=== PATIENT | female | born 1965 | race Caucasian/White ===

== ENCOUNTER 2017-12-31 19:00 | Inpatient (IN) | payer OTHER ==
[2017-12-31] MEDS: ONDANSETRON HCL 4 MG/2 ML VIAL IVP (19:45)
[2017-12-31 19:51] LABS: AUTOMATED NEUTROPHIL # 6.9 TH/MM3 (1.8-7.7); BASOPHIL % 0.5 % (0.0-2.0); EOSINOPHIL # 0.1 TH/MM3 (0-0.4); HEMO FLAGS DIFF FINAL; HEMOGLOBIN 10.2 GM/DL (11.6-15.3); LYMPH % 17.8 % (9.0-44.0); LYMPHOCYTE # 1.8 TH/MM3 (1.0-4.8); MEAN CELL VOLUME 97.6 FL (80.0-100.0); MEAN CORPUSCULAR HEMOGLOBIN 34.4 PG (27.0-34.0); MEAN CORPUSCULAR HGB CONC 35.2 % (32.0-36.0); MONO % 12.7 % (0.0-8.0); MONOCYTE # 1.3 TH/MM3 (0-0.9); PLATELET COUNT 129 TH/MM3 (150-450); RED BLOOD COUNT 2.97 MIL/MM3 (4.00-5.30); RED CELL DISTRIBUTION WIDTH 14.3 % (11.6-17.2); WHITE BLOOD COUNT 10.1 TH/MM3 (4.0-11.0)
[2017-12-31 20:02] LABS: APTT (PATIENT) 29.4 SEC (24.3-30.1); INTERNATIONAL NORMALIZED RATIO 1.3 RATIO; PROTHROMBIN TIME - PATIENT 13.6 SEC (9.8-11.6)
[2017-12-31] MEDS: DIATRIZOATE MEGLUM/DIATRIZOATE SOD 9 ML CUP (20:15)
[2017-12-31 20:25] LABS: ALBUMIN 2.4 GM/DL (3.4-5.0); ANION GAP 12 MEQ/L (5-15); AST (GOT) 53 U/L (15-37); BICARBONATE 25.3 MEQ/L (21.0-32.0); BLOOD UREA NITROGEN 6 MG/DL (7-18); CALCIUM 8.9 MG/DL (8.5-10.1); CHLORIDE 90 MEQ/L (98-107); CREATININE 0.53 MG/DL (0.50-1.00); GLOMERULAR FILTRATION RATE 122 ML/MIN (>89); GLUCOSE,RANDOM 72 MG/DL (74-106); LIPASE 281 U/L (73-393); POTASSIUM 3.1 MEQ/L (3.5-5.1); SODIUM (NA) 127 MEQ/L (136-145)
[2017-12-31 20:26] LABS: ALT (GPT) 31 U/L (10-53)
[2017-12-31 20:28] LABS: ALKALINE PHOSPHATASE 91 U/L (45-117); TOTAL BILIRUBIN ADULT 2.3 MG/DL (0.2-1.0); TOTAL PROTEIN 9.6 GM/DL (6.4-8.2)
[2017-12-31] MEDS: SODIUM CHLOR 0.9% 1000 ML INJ 1,000 ML IV (20:53)
[2017-12-31 21:37] LABS: BACTERIA, URINE OCC /hpf; BILIRUBIN, URINE NEG (NEG); BLOOD, URINE NEG (NEG); COMMENT (UR) CULT NOT INDICATED; CULTURE IF INDICATED CULT NOT INDICATED; GLUCOSE,URINE NEG (NEG); KETONE, URINE NEG (NEG); NITRITE,URINE NEG (NEG); PH, URINE 6.5 (5.0-8.5); SQUAMOUS EPITHELIAL CELL URINE <1 /hpf (0-5); URINE COLOR LIGHT-YELLOW (YELLW/STRAW); URINE LEUKOCYTE ESTERASE NEG (NEG)
[2017-12-31] MEDS: IOHEXOL 350 MG/ML 10 ML VIAL (for RAD DIAG) IVCONTRAST (21:49)
[2017-12-31] MEDS: cefTRIAXone INJ 1,000 MG in SODIUM CHLORIDE 0.9% INJ 100 ML IV (22:42)
[2017-12-31] MEDS: LORazepam 2 MG/ML VIAL IV PUSH (22:43)
[2017-12-31] MEDS: SODIUM CHLORIDE 0.9% FLUSH 10 ML FLUSH IV FLUSH (23:03)
[2017-12-31] MEDS: POTASSIUM CHLOR 20 MEQ PREMIX 100 ML IV (23:08)
[2018-01-01] MEDS ORDERED: MAGNESIUM HYDROXIDE SUSP 30 ML CUP PO (01:15)
[2018-01-01] MEDS ORDERED: SENNOSIDES 8.6 MG TAB PO (01:15)
[2018-01-01] MEDS ORDERED: BISACODYL 10 MG SUPP RECTAL (01:15)
[2018-01-01] MEDS ORDERED: SODIUM CHLORIDE 0.9% FLUSH 10 ML FLUSH IV FLUSH (01:15)
[2018-01-01] MEDS ORDERED: LACTULOSE SYRUP 20 GM/30 ML CUP PO (01:15)
[2018-01-01] MEDS ORDERED: NALOXONE HCL 0.4 MG/ML AMP IV PUSH (01:15)
[2018-01-01] MEDS ORDERED: FLUMAZENIL 0.5 MG/5 ML VIAL IV PUSH (02:45)
[2018-01-01] MEDS ORDERED: LORazepam 2 MG/ML VIAL IV PUSH (02:45)
[2018-01-01] MEDS: LORazepam 2 MG TAB PO (03:36)
[2018-01-01] MEDS: ONDANSETRON HCL 4 MG/2 ML VIAL IVP (03:36)
[2018-01-01] MEDS: MULTIVITAMIN INJ 10 ML, FOLIC ACID INJ 1 MG in SODIUM CHLORID 0.9% 500 ML INJ 500 ML IV (04:04)
[2018-01-01] MEDS: THIAMINE INJ 100 MG in SODIUM CHLORIDE 0.9% INJ 100 ML IV (04:04)
[2018-01-01] MEDS: SODIUM CHLORIDE 0.9% FLUSH 10 ML FLUSH IV FLUSH ×2 (08:44→21:00)
[2018-01-01] MEDS: PROPRANOLOL HCL 20 MG TAB PO ×3 (08:44→22:00)
[2018-01-01] MEDS: DOCUSATE SODIUM 50 MG/SENNA 8.6 MG TAB PO ×2 (08:45→21:00)
[2018-01-01 11:48] LABS: AUTOMATED NEUTROPHIL # 3.6 TH/MM3 (1.8-7.7); BASOPHIL # 0.1 TH/MM3 (0-0.2); BASOPHIL % 1.1 % (0.0-2.0); EOSINOPHIL # 0.1 TH/MM3 (0-0.4); EOSINOPHIL % 1.5 % (0.0-4.0); HEMATOCRIT 26.8 % (35.0-46.0); HEMO FLAGS DIFF FINAL; HEMOGLOBIN 9.4 GM/DL (11.6-15.3); LYMPH % 21.2 % (9.0-44.0); LYMPHOCYTE # 1.2 TH/MM3 (1.0-4.8); MEAN CELL VOLUME 99.3 FL (80.0-100.0); MEAN CORPUSCULAR HEMOGLOBIN 34.8 PG (27.0-34.0); MEAN CORPUSCULAR HGB CONC 35.1 % (32.0-36.0); MEAN PLATELET VOLUME 6.6 FL (7.0-11.0); MONO % 14.5 % (0.0-8.0); MONOCYTE # 0.8 TH/MM3 (0-0.9); NEUT % 61.7 % (16.0-70.0); PLATELET COUNT 104 TH/MM3 (150-450); RED BLOOD COUNT 2.69 MIL/MM3 (4.00-5.30); RED CELL DISTRIBUTION WIDTH 14.5 % (11.6-17.2); WHITE BLOOD COUNT 5.8 TH/MM3 (4.0-11.0)
[2018-01-01 12:25] LABS: ANION GAP 7 MEQ/L (5-15); BICARBONATE 25.9 MEQ/L (21.0-32.0); BLOOD UREA NITROGEN 7 MG/DL (7-18); CALCIUM 7.8 MG/DL (8.5-10.1); CHLORIDE 102 MEQ/L (98-107); CREATININE 0.48 MG/DL (0.50-1.00); GLOMERULAR FILTRATION RATE 136 ML/MIN (>89); GLUCOSE,RANDOM 69 MG/DL (74-106); POTASSIUM 3.4 MEQ/L (3.5-5.1); SODIUM (NA) 135 MEQ/L (136-145)
[2018-01-01] MEDS: NS + KCL 20 MEQ INJ 1,000 ML IV ×2 (12:35→22:55)
[2018-01-01] MEDS ORDERED: CHLORHEXIDINE GLUCONATE 2 % 1 PACK (2 CLOTHS) TOPICAL (14:15)
[2018-01-01] MEDS ORDERED: SODIUM CHLORID 0.9% 500 ML IV (14:15)
[2018-01-01] MEDS ORDERED: METOPROLOL TARTRATE 25 MG TAB PO (14:15)
[2018-01-01] MEDS: cefTRIAXone INJ 1,000 MG in SODIUM CHLORIDE 0.9% INJ 100 ML IV (23:00)
[2018-01-02] MEDS: THIAMINE INJ 100 MG in SODIUM CHLORIDE 0.9% INJ 100 ML IV ×2 (04:00→04:57)
[2018-01-02] MEDS: MULTIVITAMIN INJ 10 ML, FOLIC ACID INJ 1 MG in SODIUM CHLORID 0.9% 500 ML INJ 500 ML IV (04:00)
[2018-01-02] MEDS: PROPRANOLOL HCL 20 MG TAB PO ×3 (04:58→22:22)
[2018-01-02] MEDS: LACTATED RINGER'S 1000 ML IV (06:30)
[2018-01-02] MEDS: BUPIVACAINE/EPINEPHRINE 0.5% PF 30 ML VIAL (07:52)
[2018-01-02] MEDS ORDERED: SUGAMMADEX SODIUM 200 MG/2 ML VIAL IV PUSH (08:22)
[2018-01-02] MEDS ORDERED: DO NOT ADM ANY ANTICOAGULANT DRUGS (08:56)
[2018-01-02] MEDS: DOCUSATE SODIUM 50 MG/SENNA 8.6 MG TAB PO ×2 (09:00→21:00)
[2018-01-02] MEDS: SODIUM CHLORIDE 0.9% FLUSH 10 ML FLUSH IV FLUSH ×2 (09:00→21:00)
[2018-01-02] MEDS ORDERED: MIDAZOLAM HCL 2 MG/2 ML VIAL (09:06)
[2018-01-02] MEDS: NS + KCL 20 MEQ INJ 1,000 ML IV ×2 (10:14→22:22)
[2018-01-02] MEDS: oxyCODONE/ACETAMINOPHEN 5 MG/325 MG TAB PO ×2 (10:29→20:22)
[2018-01-02] MEDS: ONDANSETRON HCL 4 MG/2 ML VIAL IVP ×2 (10:35→20:28)
[2018-01-02] MEDS: ROCURONIUM INJ 50 MG/5 ML SYRINGE IV PUSH (12:00)
[2018-01-02] MEDS: PROPOFOL 200 MG/20 ML AMP IV (12:00)
[2018-01-02] MEDS: ePHEDrine/NS 25 MG/5 ML SYRINGE IV (12:00)
[2018-01-02] MEDS: LIDOCAINE HCL 1% PF 5 ML SYRINGE OTHER (12:00)
[2018-01-02 12:52] LABS: AUTOMATED NEUTROPHIL # 3.9 TH/MM3 (1.8-7.7); BASOPHIL # 0.1 TH/MM3 (0-0.2); BASOPHIL % 1.3 % (0.0-2.0); EOSINOPHIL # 0.1 TH/MM3 (0-0.4); EOSINOPHIL % 1.5 % (0.0-4.0); HEMO FLAGS DIFF FINAL; HEMOGLOBIN 10.2 GM/DL (11.6-15.3); LYMPHOCYTE # 1.9 TH/MM3 (1.0-4.8); MEAN CELL VOLUME 101.1 FL (80.0-100.0); MEAN CORPUSCULAR HEMOGLOBIN 34.5 PG (27.0-34.0); MEAN CORPUSCULAR HGB CONC 34.2 % (32.0-36.0); MEAN PLATELET VOLUME 6.8 FL (7.0-11.0); MONOCYTE # 0.9 TH/MM3 (0-0.9); NEUT % 56.2 % (16.0-70.0); PLATELET COUNT 128 TH/MM3 (150-450); RED BLOOD COUNT 2.97 MIL/MM3 (4.00-5.30); RED CELL DISTRIBUTION WIDTH 14.6 % (11.6-17.2); WHITE BLOOD COUNT 6.9 TH/MM3 (4.0-11.0)
[2018-01-02 13:23] LABS: ALBUMIN 1.8 GM/DL (3.4-5.0); ANION GAP 8 MEQ/L (5-15); AST (GOT) 196 U/L (15-37); BICARBONATE 23.2 MEQ/L (21.0-32.0); BLOOD UREA NITROGEN 7 MG/DL (7-18); CALCIUM 7.5 MG/DL (8.5-10.1); CHLORIDE 102 MEQ/L (98-107); CREATININE 0.54 MG/DL (0.50-1.00); GLOMERULAR FILTRATION RATE 119 ML/MIN (>89); GLUCOSE,RANDOM 106 MG/DL (74-106); POTASSIUM 3.4 MEQ/L (3.5-5.1); SODIUM (NA) 133 MEQ/L (136-145)
[2018-01-02 13:27] LABS: ALKALINE PHOSPHATASE 70 U/L (45-117); ALT (GPT) 56 U/L (10-53); TOTAL BILIRUBIN ADULT 1.9 MG/DL (0.2-1.0); TOTAL PROTEIN 6.8 GM/DL (6.4-8.2)
[2018-01-02 15:35] LABS: AMMONIA 64 MCMOL/L (11-32)
[2018-01-02] MEDS: LORazepam 2 MG/ML VIAL IV PUSH (17:32)
[2018-01-02] MEDS: SPIRONOLACTONE 25 MG TAB PO (17:33)
[2018-01-02] MEDS: cefTRIAXone INJ 1,000 MG in SODIUM CHLORIDE 0.9% INJ 100 ML IV (22:22)
[2018-01-03] MEDS: MULTIVITAMIN INJ 10 ML, FOLIC ACID INJ 1 MG in SODIUM CHLORID 0.9% 500 ML INJ 500 ML IV (04:00)
[2018-01-03 04:50] LABS: AUTOMATED NEUTROPHIL # 5.7 TH/MM3 (1.8-7.7); BASOPHIL # 0.1 TH/MM3 (0-0.2); BASOPHIL % 1.2 % (0.0-2.0); EOSINOPHIL # 0.1 TH/MM3 (0-0.4); EOSINOPHIL % 1.6 % (0.0-4.0); HEMATOCRIT 30.7 % (35.0-46.0); HEMO FLAGS DIFF FINAL; HEMOGLOBIN 10.6 GM/DL (11.6-15.3); LYMPH % 24.1 % (9.0-44.0); LYMPHOCYTE # 2.2 TH/MM3 (1.0-4.8); MEAN CORPUSCULAR HEMOGLOBIN 34.4 PG (27.0-34.0); MEAN CORPUSCULAR HGB CONC 34.4 % (32.0-36.0); MEAN PLATELET VOLUME 6.6 FL (7.0-11.0); MONO % 9.6 % (0.0-8.0); MONOCYTE # 0.9 TH/MM3 (0-0.9); NEUT % 63.5 % (16.0-70.0); PLATELET COUNT 134 TH/MM3 (150-450); RED BLOOD COUNT 3.07 MIL/MM3 (4.00-5.30); RED CELL DISTRIBUTION WIDTH 14.4 % (11.6-17.2); WHITE BLOOD COUNT 8.9 TH/MM3 (4.0-11.0)
[2018-01-03] MEDS: PROPRANOLOL HCL 20 MG TAB PO ×3 (04:55→21:01)
[2018-01-03] MEDS: oxyCODONE/ACETAMINOPHEN 5 MG/325 MG TAB PO ×4 (04:55→23:36)
[2018-01-03] MEDS: THIAMINE INJ 100 MG in SODIUM CHLORIDE 0.9% INJ 100 ML IV (04:56)
[2018-01-03] MEDS: ONDANSETRON HCL 4 MG/2 ML VIAL IVP ×3 (05:04→23:40)
[2018-01-03 05:29] LABS: ALBUMIN 1.8 GM/DL (3.4-5.0); ALKALINE PHOSPHATASE 76 U/L (45-117); ALT (GPT) 60 U/L (10-53); ANION GAP 6 MEQ/L (5-15); AST (GOT) 161 U/L (15-37); BICARBONATE 23.7 MEQ/L (21.0-32.0); BLOOD UREA NITROGEN 7 MG/DL (7-18); CALCIUM 7.8 MG/DL (8.5-10.1); CHLORIDE 106 MEQ/L (98-107); CREATININE 0.55 MG/DL (0.50-1.00); GLOMERULAR FILTRATION RATE 117 ML/MIN (>89); GLUCOSE,RANDOM 81 MG/DL (74-106); POTASSIUM 4.2 MEQ/L (3.5-5.1); SODIUM (NA) 136 MEQ/L (136-145); TOTAL BILIRUBIN ADULT 1.6 MG/DL (0.2-1.0); TOTAL PROTEIN 6.9 GM/DL (6.4-8.2)
[2018-01-03] MEDS: SODIUM CHLORIDE 0.9% FLUSH 10 ML FLUSH IV FLUSH ×2 (09:00→21:00)
[2018-01-03] MEDS: DOCUSATE SODIUM 50 MG/SENNA 8.6 MG TAB PO ×2 (09:00→21:00)
[2018-01-03] MEDS: SPIRONOLACTONE 25 MG TAB PO ×2 (09:42→18:04)
[2018-01-03] MEDS: RESP: ALBUTEROL 2.5 MG/IPRATROPIUM 0.5 MG NEB (PRN) NEB (10:25)
[2018-01-03] MEDS: BUDESONIDE-FORMOTEROL 160/4.5 MCG INHALER INH ×2 (13:23→21:00)
[2018-01-03] MEDS: NS + KCL 20 MEQ INJ 1,000 ML IV ×2 (13:28→21:46)
[2018-01-03 16:22] LABS: % SATURATION IRON PROFILE 31.6 % (20-50); IRON (FE) 104 MCG/DL (50-170); TOTAL IRON BINDING CAPACITY 329 MCG/DL (250-450); TRANSFERRIN IRON PROFILE 235 MG/DL (200-360)
[2018-01-03 16:22] LABS: FERRITIN 72 NG/ML (8-252)
[2018-01-03 22:05] LABS: HEPATITIS A AB IGM NONREACTIVE (NONREACTIVE); HEPATITIS B CORE AB IGM NONREACTIVE (NONREACTIVE); HEPATITIS B SURFACE ANTIGEN NONREACTIVE (NONREACTIVE); HEPATITIS C AB IgG REACTIVE (NONREACTIVE)
[2018-01-03] MEDS: cefTRIAXone INJ 1,000 MG in SODIUM CHLORIDE 0.9% INJ 100 ML IV (23:37)
[2018-01-04] MEDS: MULTIVITAMIN INJ 10 ML, FOLIC ACID INJ 1 MG in SODIUM CHLORID 0.9% 500 ML INJ 500 ML IV (03:57)
[2018-01-04] MEDS: RESP: ALBUTEROL 2.5 MG/IPRATROPIUM 0.5 MG NEB (PRN) NEB ×2 (04:07→08:41)
[2018-01-04] MEDS: oxyCODONE/ACETAMINOPHEN 5 MG/325 MG TAB PO ×5 (04:34→23:00)
[2018-01-04] MEDS: PROPRANOLOL HCL 20 MG TAB PO ×3 (05:16→20:41)
[2018-01-04 07:41] LABS: BLOOD GAS CARBOXYHEMOGLOBIN 1.3 % (0-4); BLOOD GAS HCO3 21 mmol/L (22-26); BLOOD GAS O2 HGB SATURATION 87 % (90-100); BLOOD GAS OXYGEN CONTENT 17.3 Vol % (12.0-20.0); BLOOD GAS PCO2 38 mmHg (38-42); BLOOD GAS PO2 65 mmHg (61-120); BLOOD GAS TOTAL HGB 14.1 G/DL (12.0-16.0); TEMP CORR TO 98.6
[2018-01-04 07:45] LABS: CRITICAL VALUE YES
[2018-01-04 07:46] LABS: DRAW SITE RT RADIAL; LITER FLOW 9 L/M; NUMBER OF ARTERIAL PUNCTURES 1; OXYGEN DEVICE SIMPLE MASK; STAT YES; ULNAR PULSE PRESENT
[2018-01-04 07:56] LABS: AUTOMATED NEUTROPHIL # 11.2 TH/MM3 (1.8-7.7); BASOPHIL # 0.1 TH/MM3 (0-0.2); BASOPHIL % 0.8 % (0.0-2.0); EOSINOPHIL # 0.1 TH/MM3 (0-0.4); EOSINOPHIL % 0.5 % (0.0-4.0); HEMATOCRIT 31.3 % (35.0-46.0); HEMO FLAGS DIFF FINAL; HEMOGLOBIN 10.5 GM/DL (11.6-15.3); LYMPH % 8.9 % (9.0-44.0); LYMPHOCYTE # 1.2 TH/MM3 (1.0-4.8); MEAN CELL VOLUME 101.6 FL (80.0-100.0); MEAN CORPUSCULAR HEMOGLOBIN 33.9 PG (27.0-34.0); MEAN CORPUSCULAR HGB CONC 33.4 % (32.0-36.0); MEAN PLATELET VOLUME 6.6 FL (7.0-11.0); MONO % 7.7 % (0.0-8.0); MONOCYTE # 1.1 TH/MM3 (0-0.9); NEUT % 82.1 % (16.0-70.0); PLATELET COUNT 110 TH/MM3 (150-450); RED BLOOD COUNT 3.08 MIL/MM3 (4.00-5.30); RED CELL DISTRIBUTION WIDTH 15.1 % (11.6-17.2); WHITE BLOOD COUNT 13.7 TH/MM3 (4.0-11.0)
[2018-01-04] MEDS: BUDESONIDE-FORMOTEROL 160/4.5 MCG INHALER INH ×2 (08:00→23:57)
[2018-01-04] MEDS: THIAMINE HCL 100 MG TAB PO (08:00)
[2018-01-04] MEDS: DOCUSATE SODIUM 50 MG/SENNA 8.6 MG TAB PO ×2 (08:01→20:42)
[2018-01-04] MEDS: SPIRONOLACTONE 25 MG TAB PO ×2 (08:02→17:55)
[2018-01-04] MEDS: SODIUM CHLORIDE 0.9% FLUSH 10 ML FLUSH IV FLUSH ×2 (08:02→21:00)
[2018-01-04] MEDS: ONDANSETRON HCL 4 MG/2 ML VIAL IVP ×2 (08:15→13:52)
[2018-01-04 08:32] LABS: ALBUMIN 1.8 GM/DL (3.4-5.0); ANION GAP 10 MEQ/L (5-15); AST (GOT) 91 U/L (15-37); BICARBONATE 21.2 MEQ/L (21.0-32.0); BLOOD UREA NITROGEN 6 MG/DL (7-18); CHLORIDE 105 MEQ/L (98-107); CREATININE 0.52 MG/DL (0.50-1.00); GLOMERULAR FILTRATION RATE 124 ML/MIN (>89); GLUCOSE,RANDOM 75 MG/DL (74-106); POTASSIUM 4.4 MEQ/L (3.5-5.1); SODIUM (NA) 136 MEQ/L (136-145)
[2018-01-04 08:33] LABS: ALT (GPT) 41 U/L (10-53)
[2018-01-04 08:35] LABS: ALKALINE PHOSPHATASE 77 U/L (45-117); TOTAL BILIRUBIN ADULT 1.8 MG/DL (0.2-1.0); TOTAL PROTEIN 6.6 GM/DL (6.4-8.2)
[2018-01-04] MEDS ORDERED: Vancomycin Consult Pharmacy 1 EA OTHER (09:45)
[2018-01-04] MEDS: NS + KCL 20 MEQ INJ 1,000 ML IV ×2 (10:30→20:42)
[2018-01-04] MEDS ORDERED: LEVOFLOXACIN 750 MG PREMIX INJ 150 ML IV (11:00)
[2018-01-04] MEDS: VANCOMYCIN 1,000 MG/NS 250 ML IV ×2 (11:01→22:22)
[2018-01-04] MEDS: PIPERACIL-TAZO 4.5 GM PREMIX 100 ML IV ×3 (12:03→23:57)
[2018-01-04] MEDS: methylPREDNISolone SOD SUCC 125 MG/2 ML VIAL IV PUSH ×3 (12:04→23:10)
[2018-01-04] MEDS: LACTULOSE SYRUP 20 GM/30 ML CUP PO (13:09)
[2018-01-04] MEDS: LEVOFLOXACIN 750 MG PREMIX INJ 150 ML IV (13:38)
[2018-01-04] MEDS: RESP: ALBUTEROL 2.5 MG/IPRATROPIUM 0.5 MG NEB (SCH) NEB ×2 (15:52→21:05)
[2018-01-04 16:36] LABS: ANA SCREEN NEG (NEG)
[2018-01-05] MEDS: MULTIVITAMIN INJ 10 ML, FOLIC ACID INJ 1 MG in SODIUM CHLORID 0.9% 500 ML INJ 500 ML IV (02:08)
[2018-01-05] MEDS: oxyCODONE/ACETAMINOPHEN 5 MG/325 MG TAB PO ×3 (02:22→18:08)
[2018-01-05] MEDS: RESP: ALBUTEROL 2.5 MG/IPRATROPIUM 0.5 MG NEB (SCH) NEB ×4 (02:50→20:19)
[2018-01-05] MEDS: PIPERACIL-TAZO 4.5 GM PREMIX 100 ML IV ×4 (05:44→23:47)
[2018-01-05] MEDS: PROPRANOLOL HCL 20 MG TAB PO ×3 (05:45→21:43)
[2018-01-05] MEDS: methylPREDNISolone SOD SUCC 125 MG/2 ML VIAL IV PUSH ×4 (05:47→23:47)
[2018-01-05 07:01] LABS: AUTOMATED NEUTROPHIL # 15.5 TH/MM3 (1.8-7.7); BASOPHIL # 0.1 TH/MM3 (0-0.2); BASOPHIL % 0.4 % (0.0-2.0); EOSINOPHIL % 0.1 % (0.0-4.0); HEMATOCRIT 32.3 % (35.0-46.0); HEMO FLAGS DIFF FINAL; HEMOGLOBIN 10.9 GM/DL (11.6-15.3); LYMPH % 4.6 % (9.0-44.0); LYMPHOCYTE # 0.8 TH/MM3 (1.0-4.8); MEAN CELL VOLUME 100.5 FL (80.0-100.0); MEAN CORPUSCULAR HEMOGLOBIN 33.9 PG (27.0-34.0); MEAN CORPUSCULAR HGB CONC 33.7 % (32.0-36.0); MEAN PLATELET VOLUME 6.8 FL (7.0-11.0); MONO % 5.4 % (0.0-8.0); MONOCYTE # 0.9 TH/MM3 (0-0.9); NEUT % 89.5 % (16.0-70.0); PLATELET COUNT 133 TH/MM3 (150-450); RED BLOOD COUNT 3.21 MIL/MM3 (4.00-5.30); RED CELL DISTRIBUTION WIDTH 14.9 % (11.6-17.2); WHITE BLOOD COUNT 17.3 TH/MM3 (4.0-11.0)
[2018-01-05 07:17] LABS: AMMONIA 27 MCMOL/L (11-32)
[2018-01-05] MEDS: SODIUM CHLORIDE 0.9% FLUSH 10 ML FLUSH IV FLUSH ×2 (07:27→21:43)
[2018-01-05 07:39] LABS: ALKALINE PHOSPHATASE 74 U/L (45-117); TOTAL PROTEIN 7.6 GM/DL (6.4-8.2)
[2018-01-05 07:59] LABS: ALBUMIN 1.8 GM/DL (3.4-5.0); ANION GAP 10 MEQ/L (5-15); BICARBONATE 17.8 MEQ/L (21.0-32.0); BLOOD UREA NITROGEN 11 MG/DL (7-18); CALCIUM 8.2 MG/DL (8.5-10.1); CHLORIDE 104 MEQ/L (98-107); CREATININE 0.73 MG/DL (0.50-1.00); GLOMERULAR FILTRATION RATE 84 ML/MIN (>89); GLUCOSE,RANDOM 109 MG/DL (74-106); POTASSIUM 4.7 MEQ/L (3.5-5.1); SODIUM (NA) 132 MEQ/L (136-145)
[2018-01-05 08:00] LABS: ALT (GPT) 39 U/L (10-53); AST (GOT) 96 U/L (15-37)
[2018-01-05] MEDS: DOCUSATE SODIUM 50 MG/SENNA 8.6 MG TAB PO ×2 (08:43→21:43)
[2018-01-05] MEDS: LACTULOSE SYRUP 20 GM/30 ML CUP PO (08:43)
[2018-01-05] MEDS: NS + KCL 20 MEQ INJ 1,000 ML IV ×2 (08:43→21:44)
[2018-01-05] MEDS: THIAMINE HCL 100 MG TAB PO (08:43)
[2018-01-05] MEDS: BUDESONIDE-FORMOTEROL 160/4.5 MCG INHALER INH ×2 (08:43→21:43)
[2018-01-05] MEDS: SPIRONOLACTONE 25 MG TAB PO ×2 (08:48→17:22)
[2018-01-05] MEDS: LORazepam 1 MG TAB PO (08:49)
[2018-01-05 09:27] LABS: MRSA PCR SURVEILLANCE MRSA NOT DETECTED (NOT DETECT)
[2018-01-05 10:35] LABS: BLOOD GAS BASE EXCESS -5.7 mmol/L (-2-2); BLOOD GAS CARBOXYHEMOGLOBIN 1.3 % (0-4); BLOOD GAS HCO3 19 mmol/L (22-26); BLOOD GAS O2 HGB SATURATION 92 % (90-100); BLOOD GAS OXYGEN CONTENT 13.7 Vol % (12.0-20.0); BLOOD GAS PCO2 35 mmHg (38-42); BLOOD GAS PO2 74 mmHg (61-120); BLOOD GAS TOTAL HGB 10.6 G/DL (12.0-16.0); CRITICAL VALUE NO; OXYGEN DEVICE NASAL CANNULA; TEMP CORR TO 98.6
[2018-01-05 10:36] LABS: DRAW SITE RT RADIAL; FIO2 90 %; LITER FLOW 30 L/M; NUMBER OF ARTERIAL PUNCTURES 1; STAT NO; ULNAR PULSE PRESENT
[2018-01-05] MEDS: VANCOMYCIN 1,000 MG/NS 250 ML IV ×2 (12:16→22:40)
[2018-01-05 13:26] LABS: ALPHA-1-ANTITRYPSIN 118 mg/dL (100 - 190)
[2018-01-05] MEDS: LEVOFLOXACIN 750 MG PREMIX INJ 150 ML IV (14:00)
[2018-01-05] MEDS: PHARMACY ORDERED LAB (22:45)
[2018-01-05 22:50] LABS: VANCOMYCIN TROUGH 16.6 MCG/ML (5.0-10.0)
[2018-01-05 23:53] LABS: MITOCHONDRIAL ABS LESS THAN 20.0 U (<=20.0)
[2018-01-06] MEDS: oxyCODONE/ACETAMINOPHEN 5 MG/325 MG TAB PO (00:35)
[2018-01-06] MEDS: LORazepam 2 MG TAB PO (03:09)
[2018-01-06] MEDS: RESP: ALBUTEROL 2.5 MG/IPRATROPIUM 0.5 MG NEB (SCH) NEB ×4 (05:01→23:32)
[2018-01-06] MEDS: PIPERACIL-TAZO 4.5 GM PREMIX 100 ML IV ×3 (05:26→16:17)
[2018-01-06] MEDS: PROPRANOLOL HCL 20 MG TAB PO ×3 (05:26→21:35)
[2018-01-06] MEDS: methylPREDNISolone SOD SUCC 125 MG/2 ML VIAL IV PUSH ×3 (05:26→16:18)
[2018-01-06] MEDS: LORazepam 2 MG/ML VIAL IV PUSH ×3 (07:13→13:03)
[2018-01-06] MEDS: SPIRONOLACTONE 25 MG TAB PO ×2 (08:25→16:18)
[2018-01-06] MEDS: DOCUSATE SODIUM 50 MG/SENNA 8.6 MG TAB PO ×2 (08:26→20:21)
[2018-01-06] MEDS: LACTULOSE SYRUP 20 GM/30 ML CUP PO (08:26)
[2018-01-06] MEDS: THIAMINE HCL 100 MG TAB PO (08:26)
[2018-01-06] MEDS: SODIUM CHLORIDE 0.9% FLUSH 10 ML FLUSH IV FLUSH ×2 (08:27→20:21)
[2018-01-06] MEDS: BUDESONIDE-FORMOTEROL 160/4.5 MCG INHALER INH ×2 (08:28→21:00)
[2018-01-06] MEDS: DEXMEDETOMIDINE INJ 200 MCG in SODIUM CHLORIDE 0.9% INJ 50 ML IV (09:11)
[2018-01-06] MEDS ORDERED: ETOMIDATE 40 MG/20 ML VIAL (09:34)
[2018-01-06] MEDS ORDERED: ROCURONIUM INJ 50 MG/5 ML VIAL (09:35)
[2018-01-06] MEDS ORDERED: fentaNYL CITRATE 250 MCG/5 ML AMP IV (09:45)
[2018-01-06] MEDS ORDERED: PROPOFOL 500 MG/50 ML INJ 50 ML (09:59)
[2018-01-06] MEDS: ETOMIDATE 20 MG/10 ML VIAL IVP (11:24)
[2018-01-06] MEDS: ROCURONIUM INJ 50 MG/5 ML VIAL IV (11:25)
[2018-01-06] MEDS: VANCOMYCIN 1,000 MG/NS 250 ML IV ×2 (11:33→23:32)
[2018-01-06] MEDS: NS + KCL 20 MEQ INJ 1,000 ML IV (11:33)
[2018-01-06 11:34] LABS: BLOOD GAS BASE EXCESS -5.9 mmol/L (-2-2); BLOOD GAS CARBOXYHEMOGLOBIN 1.1 % (0-4); BLOOD GAS HCO3 20 mmol/L (22-26); BLOOD GAS METHEMOGLOBIN 0.9 % (0-2); BLOOD GAS O2 HGB SATURATION 97 % (90-100); BLOOD GAS OXYGEN CONTENT 16.7 Vol % (12.0-20.0); BLOOD GAS PCO2 49 mmHg (38-42); BLOOD GAS PO2 222 mmHg (61-120); BLOOD GAS TOTAL HGB 11.8 G/DL (12.0-16.0); TEMP CORR TO 98.6
[2018-01-06 11:35] LABS: CRITICAL VALUE YES; OXYGEN DEVICE VENTILATOR
[2018-01-06 11:36] LABS: DRAW SITE RT RADIAL; FIO2 100 %; NUMBER OF ARTERIAL PUNCTURES 1; STAT NO; ULNAR PULSE PRESENT; VENT SETTINGS PRVC/AC
[2018-01-06 11:41] LABS: AUTOMATED NEUTROPHIL # 11.6 TH/MM3 (1.8-7.7); BASOPHIL # 0.1 TH/MM3 (0-0.2); BASOPHIL % 0.5 % (0.0-2.0); HEMATOCRIT 34.9 % (35.0-46.0); HEMO FLAGS DIFF FINAL; HEMOGLOBIN 11.7 GM/DL (11.6-15.3); LYMPH % 4.6 % (9.0-44.0); LYMPHOCYTE # 0.6 TH/MM3 (1.0-4.8); MEAN CORPUSCULAR HEMOGLOBIN 33.5 PG (27.0-34.0); MEAN CORPUSCULAR HGB CONC 33.5 % (32.0-36.0); MONOCYTE # 0.8 TH/MM3 (0-0.9); NEUT % 88.9 % (16.0-70.0); PLATELET COUNT 140 TH/MM3 (150-450); RED BLOOD COUNT 3.49 MIL/MM3 (4.00-5.30); RED CELL DISTRIBUTION WIDTH 15.2 % (11.6-17.2); WHITE BLOOD COUNT 13.1 TH/MM3 (4.0-11.0)
[2018-01-06] MEDS: PROPOFOL 1000 MG/100 ML INJ 100 ML IV (11:42)
[2018-01-06 12:08] LABS: ALBUMIN 1.6 GM/DL (3.4-5.0); ANION GAP 9 MEQ/L (5-15); AST (GOT) 85 U/L (15-37); BICARBONATE 20.8 MEQ/L (21.0-32.0); BLOOD UREA NITROGEN 14 MG/DL (7-18); CHLORIDE 106 MEQ/L (98-107); CREATININE 0.58 MG/DL (0.50-1.00); GLOMERULAR FILTRATION RATE 110 ML/MIN (>89); GLUCOSE,RANDOM 99 MG/DL (74-106); POTASSIUM 4.3 MEQ/L (3.5-5.1); SODIUM (NA) 136 MEQ/L (136-145)
[2018-01-06 12:09] LABS: ALT (GPT) 34 U/L (10-53)
[2018-01-06 12:11] LABS: BILIRUBIN, URINE NEG (NEG); BLOOD, URINE NEG (NEG); GLUCOSE,URINE NEG (NEG); KETONE, URINE NEG (NEG); MUCUS URINE FEW /lpf (OCC); NITRITE,URINE NEG (NEG); PH, URINE 5.5 (5.0-8.5); SQUAMOUS EPITHELIAL CELL URINE 1 /hpf (0-5); URINE COLOR YELLOW (YELLW/STRAW); URINE LEUKOCYTE ESTERASE NEG (NEG)
[2018-01-06 12:12] LABS: ALKALINE PHOSPHATASE 62 U/L (45-117); COMMENT (UR) CATH-CULT NOT IND; CULTURE IF INDICATED CATH CULTURE NOT IND; TOTAL BILIRUBIN ADULT 1.8 MG/DL (0.2-1.0); TOTAL PROTEIN 6.9 GM/DL (6.4-8.2)
[2018-01-06] MEDS: LEVOFLOXACIN 750 MG PREMIX INJ 150 ML IV (13:02)
[2018-01-06] MEDS ORDERED: TERBUTALINE INJ 1 MG/ML AMP SQ (15:00)
[2018-01-06] MEDS: RASS Change Order XX (15:00)
[2018-01-06] MEDS: LANSOPRAZOLE SOLUTAB 30 MG TAB NG (15:11)
[2018-01-06] MEDS: fentaNYL DRIP 250 ML IV (15:12)
[2018-01-06] MEDS: NOREPINEPHRINE-DEXTROSE DRIP 250 ML IV (15:12)
[2018-01-06] MEDS: MIDAZOLAM HCL 2 MG/2 ML VIAL IV PUSH (15:12)
[2018-01-06] MEDS: MIDAZOLAM 50 MG/50 ML INJ 50 ML IV (15:13)
[2018-01-06] MEDS: CHLORHEXIDINE 0.12% (ORAL KIT) 15 ML CUP MT (20:00)
[2018-01-07] MEDS: methylPREDNISolone SOD SUCC 125 MG/2 ML VIAL IV PUSH ×4 (00:47→17:03)
[2018-01-07] MEDS: PIPERACIL-TAZO 4.5 GM PREMIX 100 ML IV ×4 (00:47→17:03)
[2018-01-07 03:50] LABS: HCV RNA PCR IU/ML 20 IU/mL (Not Detected)
[2018-01-07] MEDS: NS + KCL 20 MEQ INJ 1,000 ML IV ×3 (03:50→21:55)
[2018-01-07] MEDS: RESP: ALBUTEROL 2.5 MG/IPRATROPIUM 0.5 MG NEB (SCH) NEB ×4 (04:13→20:26)
[2018-01-07] MEDS: PROPRANOLOL HCL 20 MG TAB PO ×3 (05:14→21:26)
[2018-01-07] MEDS: NOREPINEPHRINE-DEXTROSE DRIP 250 ML IV (05:14)
[2018-01-07] MEDS: fentaNYL DRIP 250 ML IV ×2 (05:36→17:03)
[2018-01-07 06:23] LABS: AUTOMATED NEUTROPHIL # 8.8 TH/MM3 (1.8-7.7); BASOPHIL % 0.2 % (0.0-2.0); EOSINOPHIL % 0.3 % (0.0-4.0); HEMATOCRIT 30.8 % (35.0-46.0); HEMOGLOBIN 10.6 GM/DL (11.6-15.3); LYMPH % 5.5 % (9.0-44.0); LYMPHOCYTE # 0.5 TH/MM3 (1.0-4.8); MEAN CELL VOLUME 100.2 FL (80.0-100.0); MEAN CORPUSCULAR HEMOGLOBIN 34.6 PG (27.0-34.0); MEAN CORPUSCULAR HGB CONC 34.5 % (32.0-36.0); MEAN PLATELET VOLUME 7.2 FL (7.0-11.0); MONO % 4.6 % (0.0-8.0); MONOCYTE # 0.5 TH/MM3 (0-0.9); NEUT % 89.4 % (16.0-70.0); PLATELET COUNT 108 TH/MM3 (150-450); RED BLOOD COUNT 3.07 MIL/MM3 (4.00-5.30); RED CELL DISTRIBUTION WIDTH 15.3 % (11.6-17.2); WHITE BLOOD COUNT 9.9 TH/MM3 (4.0-11.0)
[2018-01-07 06:48] LABS: ALBUMIN 1.4 GM/DL (3.4-5.0); ALKALINE PHOSPHATASE 62 U/L (45-117); ALT (GPT) 28 U/L (10-53); ANION GAP 8 MEQ/L (5-15); AST (GOT) 66 U/L (15-37); BICARBONATE 21.6 MEQ/L (21.0-32.0); BLOOD UREA NITROGEN 14 MG/DL (7-18); CALCIUM 7.4 MG/DL (8.5-10.1); CALCIUM-PROTEIN CORRECTED 7.9 MG/DL (8.5-10.1); CHLORIDE 108 MEQ/L (98-107); CREATININE 0.58 MG/DL (0.50-1.00); GLOMERULAR FILTRATION RATE 110 ML/MIN (>89); GLUCOSE,RANDOM 155 MG/DL (74-106); POTASSIUM 4.4 MEQ/L (3.5-5.1); SODIUM (NA) 138 MEQ/L (136-145); TOTAL BILIRUBIN ADULT 1.3 MG/DL (0.2-1.0); TOTAL PROTEIN 6.2 GM/DL (6.4-8.2)
[2018-01-07 07:19] LABS: HEMO FLAGS AUTO DIFF
[2018-01-07 07:20] LABS: PLATELET ESTIMATE SMEAR LOW (NORMAL); PLATELET MORPHOLOGY NORMAL (NORMAL); SCAN/DIFF AUTO DIFF CONFIRMED
[2018-01-07] MEDS: LACTULOSE SYRUP 20 GM/30 ML CUP PO (07:47)
[2018-01-07] MEDS: SPIRONOLACTONE 25 MG TAB PO ×2 (07:47→17:03)
[2018-01-07] MEDS: DOCUSATE SODIUM 50 MG/SENNA 8.6 MG TAB PO ×2 (07:47→21:26)
[2018-01-07] MEDS: LANSOPRAZOLE SOLUTAB 30 MG TAB NG (07:47)
[2018-01-07] MEDS: THIAMINE HCL 100 MG TAB PO (07:47)
[2018-01-07] MEDS: SODIUM CHLORIDE 0.9% FLUSH 10 ML FLUSH IV FLUSH ×2 (07:48→19:36)
[2018-01-07] MEDS: MIDAZOLAM 50 MG/50 ML INJ 50 ML IV ×2 (07:49→19:27)
[2018-01-07] MEDS: BUDESONIDE-FORMOTEROL 160/4.5 MCG INHALER INH ×2 (07:49→19:35)
[2018-01-07] MEDS: CHLORHEXIDINE 0.12% (ORAL KIT) 15 ML CUP MT ×2 (07:49→21:26)
[2018-01-07] MEDS: PHARMACY ORDERED LAB (10:45)
[2018-01-07] MEDS: VANCOMYCIN 1,000 MG/NS 250 ML IV (10:56)
[2018-01-07 12:29] LABS: VANCOMYCIN TROUGH 15.9 MCG/ML (5.0-10.0)
[2018-01-07 13:52] LABS: HEPATITIS C RNA GENOTYPE NOT DETECTED (NOT DETECTD)
[2018-01-07] MEDS: LEVOFLOXACIN 750 MG PREMIX INJ 150 ML IV (13:52)
[2018-01-07 19:54] LABS: CERULOPLASMIN 17 mg/dL (18-53)
[2018-01-08] MEDS: VANCOMYCIN 1,000 MG/NS 250 ML IV ×3 (00:43→23:10)
[2018-01-08] MEDS: PIPERACIL-TAZO 4.5 GM PREMIX 100 ML IV ×4 (00:43→18:00)
[2018-01-08] MEDS: methylPREDNISolone SOD SUCC 125 MG/2 ML VIAL IV PUSH ×4 (00:43→18:00)
[2018-01-08] MEDS: RESP: ALBUTEROL 2.5 MG/IPRATROPIUM 0.5 MG NEB (SCH) NEB ×2 (03:38→08:06)
[2018-01-08] MEDS: PROPRANOLOL HCL 20 MG TAB PO ×3 (05:52→20:42)
[2018-01-08 06:24] LABS: AMMONIA 108 MCMOL/L (11-32)
[2018-01-08] MEDS: fentaNYL DRIP 250 ML IV ×2 (06:25→20:41)
[2018-01-08 06:28] LABS: AUTOMATED NEUTROPHIL # 5.6 TH/MM3 (1.8-7.7); BASOPHIL % 0.1 % (0.0-2.0); HEMATOCRIT 27.9 % (35.0-46.0); HEMOGLOBIN 9.6 GM/DL (11.6-15.3); LYMPH % 6.9 % (9.0-44.0); LYMPHOCYTE # 0.4 TH/MM3 (1.0-4.8); MEAN CELL VOLUME 100.6 FL (80.0-100.0); MEAN CORPUSCULAR HEMOGLOBIN 34.4 PG (27.0-34.0); MEAN CORPUSCULAR HGB CONC 34.2 % (32.0-36.0); MEAN PLATELET VOLUME 7.6 FL (7.0-11.0); MONO % 5.1 % (0.0-8.0); MONOCYTE # 0.3 TH/MM3 (0-0.9); NEUT % 87.9 % (16.0-70.0); PLATELET COUNT 52 TH/MM3 (150-450); RED BLOOD COUNT 2.78 MIL/MM3 (4.00-5.30); RED CELL DISTRIBUTION WIDTH 15.5 % (11.6-17.2); WHITE BLOOD COUNT 6.3 TH/MM3 (4.0-11.0)
[2018-01-08 06:39] LABS: ALBUMIN 1.3 GM/DL (3.4-5.0); ALKALINE PHOSPHATASE 87 U/L (45-117); ALT (GPT) 28 U/L (10-53); ANION GAP 4 MEQ/L (5-15); AST (GOT) 58 U/L (15-37); BICARBONATE 26.1 MEQ/L (21.0-32.0); BLOOD UREA NITROGEN 18 MG/DL (7-18); CALCIUM 7.3 MG/DL (8.5-10.1); CALCIUM-PROTEIN CORRECTED 8.1 MG/DL (8.5-10.1); CHLORIDE 113 MEQ/L (98-107); CREATININE 0.53 MG/DL (0.50-1.00); GLOMERULAR FILTRATION RATE 122 ML/MIN (>89); GLUCOSE,RANDOM 154 MG/DL (74-106); POTASSIUM 4.6 MEQ/L (3.5-5.1); SODIUM (NA) 143 MEQ/L (136-145); TOTAL BILIRUBIN ADULT 0.9 MG/DL (0.2-1.0); TOTAL PROTEIN 5.7 GM/DL (6.4-8.2)
[2018-01-08 07:49] LABS: HEMO FLAGS AUTO DIFF
[2018-01-08] MEDS: CHLORHEXIDINE 0.12% (ORAL KIT) 15 ML CUP MT ×2 (08:00→20:00)
[2018-01-08 08:27] LABS: PLATELET ESTIMATE SMEAR LOW (NORMAL); PLATELET MORPHOLOGY NORMAL (NORMAL); SCAN/DIFF AUTO DIFF CONFIRMED
[2018-01-08] MEDS: DOCUSATE SODIUM 50 MG/SENNA 8.6 MG TAB PO ×2 (09:00→20:42)
[2018-01-08] MEDS: SODIUM CHLORIDE 0.9% FLUSH 10 ML FLUSH IV FLUSH ×2 (09:00→20:42)
[2018-01-08] MEDS: BUDESONIDE-FORMOTEROL 160/4.5 MCG INHALER INH ×2 (09:00→20:42)
[2018-01-08] MEDS: LACTULOSE SYRUP 20 GM/30 ML CUP PO ×3 (09:03→20:42)
[2018-01-08] MEDS: THIAMINE HCL 100 MG TAB PO (09:03)
[2018-01-08] MEDS: SPIRONOLACTONE 25 MG TAB PO ×2 (09:03→18:00)
[2018-01-08] MEDS: LANSOPRAZOLE SOLUTAB 30 MG TAB NG (09:04)
[2018-01-08] MEDS: NS + KCL 20 MEQ INJ 1,000 ML IV (12:00)
[2018-01-08] MEDS: LEVOFLOXACIN 750 MG PREMIX INJ 150 ML IV (14:00)
[2018-01-08] MEDS: RESP: ALBUTEROL 2.5 MG/3 ML NEB (PRN) NEB (16:28)
[2018-01-08] MEDS: MIDAZOLAM 50 MG/50 ML INJ 50 ML IV (20:41)
[2018-01-09] MEDS: RESP: ALBUTEROL 2.5 MG/3 ML NEB (PRN) NEB ×3 (00:08→20:20)
[2018-01-09] MEDS: PIPERACIL-TAZO 4.5 GM PREMIX 100 ML IV ×4 (00:28→17:21)
[2018-01-09] MEDS: methylPREDNISolone SOD SUCC 125 MG/2 ML VIAL IV PUSH ×4 (00:28→17:20)
[2018-01-09] MEDS: NS + KCL 20 MEQ INJ 1,000 ML IV ×3 (00:30→21:35)
[2018-01-09] MEDS: LACTULOSE SYRUP 20 GM/30 ML CUP PO ×4 (01:46→21:00)
[2018-01-09 04:51] LABS: AMMONIA 53 MCMOL/L (11-32)
[2018-01-09 05:46] LABS: INTERNATIONAL NORMALIZED RATIO 1.7 RATIO; PROTHROMBIN TIME - PATIENT 17.2 SEC (9.8-11.6)
[2018-01-09] MEDS: PROPRANOLOL HCL 20 MG TAB PO ×3 (06:15→22:00)
[2018-01-09] MEDS: CHLORHEXIDINE 0.12% (ORAL KIT) 15 ML CUP MT ×2 (08:00→20:00)
[2018-01-09] MEDS: LANSOPRAZOLE SOLUTAB 30 MG TAB NG (08:18)
[2018-01-09] MEDS: SPIRONOLACTONE 25 MG TAB PO ×2 (08:18→17:21)
[2018-01-09] MEDS: SODIUM CHLORIDE 0.9% FLUSH 10 ML FLUSH IV FLUSH ×2 (08:19→21:00)
[2018-01-09] MEDS: BUDESONIDE-FORMOTEROL 160/4.5 MCG INHALER INH ×2 (08:19→20:20)
[2018-01-09] MEDS: THIAMINE HCL 100 MG TAB PO (08:19)
[2018-01-09] MEDS: DOCUSATE SODIUM 50 MG/SENNA 8.6 MG TAB PO ×2 (08:19→21:00)
[2018-01-09] MEDS: PHARMACY ORDERED LAB (10:45)
[2018-01-09] MEDS: VANCOMYCIN 1,000 MG/NS 250 ML IV ×2 (11:06→22:58)
[2018-01-09 12:15] LABS: VANCOMYCIN TROUGH 13.9 MCG/ML (5.0-10.0)
[2018-01-09] MEDS: LEVOFLOXACIN 750 MG PREMIX INJ 150 ML IV (13:51)
[2018-01-10] MEDS: LACTULOSE SYRUP 20 GM/30 ML CUP PO ×4 (02:16→20:16)
[2018-01-10 04:18] LABS: ALBUMIN 1.5 GM/DL (3.4-5.0); ALKALINE PHOSPHATASE 112 U/L (45-117); ALT (GPT) 39 U/L (10-53); ANION GAP 5 MEQ/L (5-15); AST (GOT) 57 U/L (15-37); BLOOD UREA NITROGEN 22 MG/DL (7-18); CALCIUM 7.2 MG/DL (8.5-10.1); CALCIUM-PROTEIN CORRECTED 7.8 MG/DL (8.5-10.1); CHLORIDE 113 MEQ/L (98-107); GLOMERULAR FILTRATION RATE 105 ML/MIN (>89); GLUCOSE,RANDOM 184 MG/DL (74-106); POTASSIUM 4.5 MEQ/L (3.5-5.1); SODIUM (NA) 147 MEQ/L (136-145); TOTAL BILIRUBIN ADULT 1.1 MG/DL (0.2-1.0)
[2018-01-10] MEDS: PIPERACIL-TAZO 4.5 GM PREMIX 100 ML IV ×5 (06:00→23:51)
[2018-01-10] MEDS: PROPRANOLOL HCL 20 MG TAB PO ×3 (06:00→22:37)
[2018-01-10] MEDS: methylPREDNISolone SOD SUCC 125 MG/2 ML VIAL IV PUSH ×5 (06:00→23:52)
[2018-01-10] MEDS: SODIUM CHLORIDE 0.9% FLUSH 10 ML FLUSH IV FLUSH ×2 (08:00→20:16)
[2018-01-10] MEDS: CHLORHEXIDINE 0.12% (ORAL KIT) 15 ML CUP MT ×2 (08:00→20:00)
[2018-01-10] MEDS: THIAMINE HCL 100 MG TAB PO (08:37)
[2018-01-10] MEDS: NS + KCL 20 MEQ INJ 1,000 ML IV ×3 (08:37→19:31)
[2018-01-10] MEDS: DOCUSATE SODIUM 50 MG/SENNA 8.6 MG TAB PO ×2 (08:37→20:16)
[2018-01-10] MEDS: SPIRONOLACTONE 25 MG TAB PO ×2 (08:37→17:38)
[2018-01-10] MEDS: LANSOPRAZOLE SOLUTAB 30 MG TAB NG (08:38)
[2018-01-10] MEDS: BUDESONIDE-FORMOTEROL 160/4.5 MCG INHALER INH ×2 (09:00→21:00)
[2018-01-10] MEDS: VANCOMYCIN 1,000 MG/NS 250 ML IV ×2 (10:20→23:52)
[2018-01-10] MEDS: hydrALAZINE HCL 20 MG/ML VIAL IV PUSH ×3 (11:10→23:51)
[2018-01-10] MEDS: LEVOFLOXACIN 750 MG PREMIX INJ 150 ML IV (14:36)
[2018-01-10] MEDS: MORPHINE SULFATE 4 MG/ML INJ IM (20:18)
[2018-01-11] MEDS: MORPHINE SULFATE 4 MG/ML INJ IM ×2 (02:36→20:43)
[2018-01-11] MEDS: LABETALOL HCL 100 MG/20 ML VIAL IV PUSH ×3 (02:48→04:40)
[2018-01-11] MEDS: LACTULOSE SYRUP 20 GM/30 ML CUP PO ×4 (03:00→20:42)
[2018-01-11 05:47] LABS: AUTOMATED NEUTROPHIL # 15.6 TH/MM3 (1.8-7.7); BASOPHIL % 0.1 % (0.0-2.0); EOSINOPHIL % 0.1 % (0.0-4.0); HEMATOCRIT 35.9 % (35.0-46.0); HEMOGLOBIN 12.2 GM/DL (11.6-15.3); LYMPH % 2.5 % (9.0-44.0); LYMPHOCYTE # 0.4 TH/MM3 (1.0-4.8); MEAN CELL VOLUME 98.7 FL (80.0-100.0); MEAN CORPUSCULAR HEMOGLOBIN 33.6 PG (27.0-34.0); MEAN CORPUSCULAR HGB CONC 34.1 % (32.0-36.0); MEAN PLATELET VOLUME 7.8 FL (7.0-11.0); MONO % 6.1 % (0.0-8.0); NEUT % 91.2 % (16.0-70.0); PLATELET COUNT 72 TH/MM3 (150-450); RED BLOOD COUNT 3.64 MIL/MM3 (4.00-5.30); RED CELL DISTRIBUTION WIDTH 15.5 % (11.6-17.2); WHITE BLOOD COUNT 17.1 TH/MM3 (4.0-11.0)
[2018-01-11 05:48] LABS: HEMO FLAGS AUTO DIFF
[2018-01-11 06:11] LABS: AMMONIA 107 MCMOL/L (11-32)
[2018-01-11] MEDS: niCARdipine INJ 25 MG in SODIUM CHLOR 0.9% 250 ML INJ 240 ML IV (06:15)
[2018-01-11] MEDS: PROPRANOLOL HCL 20 MG TAB PO ×3 (06:17→21:47)
[2018-01-11 06:19] LABS: ANION GAP 5 MEQ/L (5-15)
[2018-01-11] MEDS: methylPREDNISolone SOD SUCC 125 MG/2 ML VIAL IV PUSH ×3 (06:19→17:19)
[2018-01-11] MEDS: PIPERACIL-TAZO 4.5 GM PREMIX 100 ML IV ×3 (06:19→17:19)
[2018-01-11 06:21] LABS: ALBUMIN 1.6 GM/DL (3.4-5.0); ALKALINE PHOSPHATASE 124 U/L (45-117); ALT (GPT) 58 U/L (10-53); AST (GOT) 84 U/L (15-37); BICARBONATE 29.1 MEQ/L (21.0-32.0); BLOOD UREA NITROGEN 23 MG/DL (7-18); CALCIUM 7.3 MG/DL (8.5-10.1); CALCIUM-PROTEIN CORRECTED 7.5 MG/DL (8.5-10.1); CHLORIDE 114 MEQ/L (98-107); GLOMERULAR FILTRATION RATE 105 ML/MIN (>89); GLUCOSE,RANDOM 172 MG/DL (74-106); POTASSIUM 4.3 MEQ/L (3.5-5.1); SODIUM (NA) 148 MEQ/L (136-145); TOTAL BILIRUBIN ADULT 1.4 MG/DL (0.2-1.0); TOTAL PROTEIN 6.8 GM/DL (6.4-8.2)
[2018-01-11 06:44] LABS: BANDS 8 % (0-6); LYMPHOCYTES 1 % (9-44); MONOCYTES 2 % (0-8); NEUTROPHIL # MANUAL DIFF 16.6 TH/MM3 (1.8-7.7); POLYS (SEG NEUTROPHILS) 89 % (16-70); WBC DIFF SAMPLE 100
[2018-01-11 06:46] LABS: PLATELET ESTIMATE SMEAR LOW (NORMAL); PLATELET MORPHOLOGY NORMAL (NORMAL); SCAN/DIFF FINAL DIFF MANUAL
[2018-01-11] MEDS: CHLORHEXIDINE 0.12% (ORAL KIT) 15 ML CUP MT ×2 (07:43→20:00)
[2018-01-11] MEDS: BUDESONIDE-FORMOTEROL 160/4.5 MCG INHALER INH ×2 (07:43→20:41)
[2018-01-11] MEDS: SODIUM CHLORIDE 0.9% FLUSH 10 ML FLUSH IV FLUSH ×2 (07:44→21:00)
[2018-01-11] MEDS: DOCUSATE SODIUM 50 MG/SENNA 8.6 MG TAB PO ×2 (07:44→20:42)
[2018-01-11] MEDS ORDERED: DEXTROSE 50% IN WATER 50 ML VIAL(D50) IV PUSH (07:45)
[2018-01-11] MEDS ORDERED: GLUCAGON 1 MG/ML VIAL OTHER (07:45)
[2018-01-11] MEDS: SPIRONOLACTONE 25 MG TAB PO ×2 (08:04→17:20)
[2018-01-11] MEDS: LANSOPRAZOLE SOLUTAB 30 MG TAB NG (08:04)
[2018-01-11] MEDS: THIAMINE HCL 100 MG TAB PO (08:04)
[2018-01-11] MEDS: INSULIN ASPART SUPPLEMENTAL SCALE SQ ×3 (08:16→20:41)
[2018-01-11] MEDS: VANCOMYCIN 1,000 MG/NS 250 ML IV (11:00)
[2018-01-11] MEDS: LEVOFLOXACIN 750 MG PREMIX INJ 150 ML IV (14:00)
[2018-01-12] MEDS: VANCOMYCIN 1,000 MG/NS 250 ML IV ×2 (00:39→10:09)
[2018-01-12] MEDS: methylPREDNISolone SOD SUCC 125 MG/2 ML VIAL IV PUSH ×4 (00:39→18:09)
[2018-01-12] MEDS: PIPERACIL-TAZO 4.5 GM PREMIX 100 ML IV ×4 (00:40→18:09)
[2018-01-12] MEDS: INSULIN ASPART SUPPLEMENTAL SCALE SQ ×4 (04:24→20:42)
[2018-01-12] MEDS: LACTULOSE SYRUP 20 GM/30 ML CUP PO ×4 (04:25→20:42)
[2018-01-12] MEDS: PROPRANOLOL HCL 20 MG TAB PO ×3 (06:43→22:00)
[2018-01-12 06:55] LABS: INTERNATIONAL NORMALIZED RATIO 1.8 RATIO; PROTHROMBIN TIME - PATIENT 18.3 SEC (9.8-11.6)
[2018-01-12 07:11] LABS: ALBUMIN 1.6 GM/DL (3.4-5.0); ALT (GPT) 63 U/L (10-53); ANION GAP 6 MEQ/L (5-15); AST (GOT) 84 U/L (15-37); BICARBONATE 28.3 MEQ/L (21.0-32.0); BLOOD UREA NITROGEN 29 MG/DL (7-18); CALCIUM 7.6 MG/DL (8.5-10.1); CHLORIDE 115 MEQ/L (98-107); CREATININE 0.79 MG/DL (0.50-1.00); GLOMERULAR FILTRATION RATE 77 ML/MIN (>89); GLUCOSE,RANDOM 220 MG/DL (74-106); SODIUM (NA) 149 MEQ/L (136-145)
[2018-01-12 07:14] LABS: ALKALINE PHOSPHATASE 133 U/L (45-117); TOTAL BILIRUBIN ADULT 1.9 MG/DL (0.2-1.0); TOTAL PROTEIN 6.4 GM/DL (6.4-8.2)
[2018-01-12] MEDS: CHLORHEXIDINE 0.12% (ORAL KIT) 15 ML CUP MT ×2 (08:00→20:00)
[2018-01-12] MEDS: DOCUSATE SODIUM 50 MG/SENNA 8.6 MG TAB PO ×2 (08:52→20:42)
[2018-01-12] MEDS: THIAMINE HCL 100 MG TAB PO (08:52)
[2018-01-12] MEDS: SPIRONOLACTONE 25 MG TAB PO ×2 (08:52→18:09)
[2018-01-12] MEDS: LANSOPRAZOLE SOLUTAB 30 MG TAB NG (08:53)
[2018-01-12] MEDS: niCARdipine INJ 25 MG in SODIUM CHLOR 0.9% 250 ML INJ 240 ML IV (08:53)
[2018-01-12] MEDS: BUDESONIDE-FORMOTEROL 160/4.5 MCG INHALER INH ×2 (08:54→21:00)
[2018-01-12] MEDS: SODIUM CHLORIDE 0.9% FLUSH 10 ML FLUSH IV FLUSH ×2 (08:54→20:42)
[2018-01-12] MEDS: NS + KCL 20 MEQ INJ 1,000 ML IV (08:55)
[2018-01-12] MEDS: INSULIN DETEMIR 100 UNITS/ML VIAL SQ ×2 (09:15→20:43)
[2018-01-12] MEDS: MORPHINE SULFATE 4 MG/ML INJ IM ×3 (10:05→20:43)
[2018-01-12] MEDS: RESP: ALBUTEROL 2.5 MG/IPRATROPIUM 0.5 MG NEB (SCH) INH ×2 (14:00→20:56)
[2018-01-12] MEDS: LEVOFLOXACIN 750 MG PREMIX INJ 150 ML IV (14:50)
[2018-01-13] MEDS: VANCOMYCIN 1,000 MG/NS 250 ML IV ×2 (00:40→10:00)
[2018-01-13] MEDS: PIPERACIL-TAZO 4.5 GM PREMIX 100 ML IV ×2 (00:41→06:00)
[2018-01-13] MEDS: methylPREDNISolone SOD SUCC 125 MG/2 ML VIAL IV PUSH ×2 (00:41→06:18)
[2018-01-13] MEDS: MORPHINE SULFATE 4 MG/ML INJ IM ×2 (01:28→10:48)
[2018-01-13] MEDS: INSULIN ASPART SUPPLEMENTAL SCALE SQ ×3 (02:41→20:00)
[2018-01-13] MEDS: LACTULOSE SYRUP 20 GM/30 ML CUP PO ×2 (02:42→09:59)
[2018-01-13] MEDS: PROPRANOLOL HCL 20 MG TAB PO ×3 (06:18→20:46)
[2018-01-13 06:28] LABS: AMMONIA 78 MCMOL/L (11-32)
[2018-01-13 06:29] LABS: ALBUMIN 1.5 GM/DL (3.4-5.0); ALT (GPT) 68 U/L (10-53); ANION GAP 6 MEQ/L (5-15); AST (GOT) 90 U/L (15-37); BICARBONATE 29.1 MEQ/L (21.0-32.0); BLOOD UREA NITROGEN 28 MG/DL (7-18); CALCIUM 7.7 MG/DL (8.5-10.1); CHLORIDE 120 MEQ/L (98-107); CREATININE 0.65 MG/DL (0.50-1.00); GLOMERULAR FILTRATION RATE 96 ML/MIN (>89); GLUCOSE,RANDOM 168 MG/DL (74-106); POTASSIUM 3.8 MEQ/L (3.5-5.1); SODIUM (NA) 155 MEQ/L (136-145)
[2018-01-13 06:31] LABS: ALKALINE PHOSPHATASE 127 U/L (45-117); TOTAL BILIRUBIN ADULT 1.9 MG/DL (0.2-1.0); TOTAL PROTEIN 6.4 GM/DL (6.4-8.2)
[2018-01-13] MEDS: CHLORHEXIDINE 0.12% (ORAL KIT) 15 ML CUP MT ×2 (08:00→20:00)
[2018-01-13] MEDS: RESP: ALBUTEROL 2.5 MG/IPRATROPIUM 0.5 MG NEB (SCH) INH ×3 (08:06→19:38)
[2018-01-13] MEDS: INSULIN DETEMIR 100 UNITS/ML VIAL SQ ×2 (09:00→20:46)
[2018-01-13] MEDS: BUDESONIDE-FORMOTEROL 160/4.5 MCG INHALER INH ×2 (09:00→20:44)
[2018-01-13] MEDS: SPIRONOLACTONE 25 MG TAB PO (09:58)
[2018-01-13] MEDS: THIAMINE HCL 100 MG TAB PO (09:58)
[2018-01-13] MEDS: DOCUSATE SODIUM 50 MG/SENNA 8.6 MG TAB PO (09:58)
[2018-01-13] MEDS: LANSOPRAZOLE SOLUTAB 30 MG TAB NG (09:58)
[2018-01-13] MEDS: SODIUM CHLORIDE 0.9% FLUSH 10 ML FLUSH IV FLUSH ×2 (09:59→20:46)
[2018-01-13] MEDS: NS + KCL 20 MEQ INJ 1,000 ML IV (09:59)
[2018-01-13] MEDS: MORPHINE SULFATE 4 MG/ML INJ IV PUSH ×2 (13:29→22:00)
[2018-01-13] MEDS: LORazepam 2 MG/ML VIAL IV PUSH ×3 (13:41→22:00)
[2018-01-14] MEDS: INSULIN ASPART SUPPLEMENTAL SCALE SQ (02:00)
[2018-01-14] MEDS: PROPRANOLOL HCL 20 MG TAB PO (06:00)
[2018-01-14] MEDS: MORPHINE SULFATE 4 MG/ML INJ IV PUSH ×3 (06:01→16:39)
[2018-01-14] MEDS: LORazepam 2 MG/ML VIAL IV PUSH ×3 (06:01→16:39)
[2018-01-14] MEDS: CHLORHEXIDINE 0.12% (ORAL KIT) 15 ML CUP MT (07:41)
[2018-01-14] MEDS: BUDESONIDE-FORMOTEROL 160/4.5 MCG INHALER INH (07:42)
[2018-01-14] MEDS: RESP: ALBUTEROL 2.5 MG/IPRATROPIUM 0.5 MG NEB (SCH) INH (08:00)
[2018-01-14] MEDS: SODIUM CHLORIDE 0.9% FLUSH 10 ML FLUSH IV FLUSH (08:54)
== END 2018-01-14 17:06 | disposition hospice, inpatient (51) | DRG 353 ==
LOC: N04A 01-01 02:26 → N03B 01-04 11:37 → NEPC 19:00 → NEDA 22:56
PROC: 0WQF0ZZ Repair Abdominal Wall, Open Approach (ICD-10-PCS; principal; 2018-01-02 07:19)
PROC: 5A1955Z Respiratory Ventilation, Greater than 96 Consecutive Hours (ICD-10-PCS; 2018-01-02 07:19)
PROC: 0W9G0ZZ Drainage of Peritoneal Cavity, Open Approach (ICD-10-PCS; 2018-01-02 07:19)
PROC: 02HV33Z Insertion of Infusion Device into Superior Vena Cava, Percutaneous Approach (ICD-10-PCS; 2018-01-02 07:19)
PROC: 0BH17EZ Insertion of Endotracheal Airway into Trachea, Via Natural or Artificial Opening (ICD-10-PCS; 2018-01-02 07:19)
PROC: 0T9B70Z Drainage of Bladder with Drainage Device, Via Natural or Artificial Opening (ICD-10-PCS; 2018-01-02 07:19)
DX: K42.9 Umbilical hernia without obstruction or gangrene (principal); J69.0 Pneumonitis due to inhalation of food and vomit; J96.01 Acute respiratory failure with hypoxia; A41.9 Sepsis, unspecified organism; J18.9 Pneumonia, unspecified organism; I85.10 Secondary esophageal varices without bleeding; E87.1 Hypo-osmolality and hyponatremia; Z99.11 Dependence on respirator [ventilator] status; K76.6 Portal hypertension; J44.1 Chronic obstructive pulmonary disease with (acute) exacerbation; F10.239 Alcohol dependence with withdrawal, unspecified; K70.31 Alcoholic cirrhosis of liver with ascites; I10 Essential (primary) hypertension; B19.20 Unspecified viral hepatitis C without hepatic coma; M19.90 Unspecified osteoarthritis, unspecified site; Z90.710 Acquired absence of both cervix and uterus; F17.210 Nicotine dependence, cigarettes, uncomplicated; E87.6 Hypokalemia; Z87.11 Personal history of peptic ulcer disease; Z82.49 Family history of ischemic heart disease and other diseases of the circulatory system; R23.3 Spontaneous ecchymoses; K72.90 Hepatic failure, unspecified without coma; Z78.1 Physical restraint status; Z66 Do not resuscitate; Z51.5 Encounter for palliative care; D69.6 Thrombocytopenia, unspecified; E88.09 Other disorders of plasma-protein metabolism, not elsewhere classified; I49.1 Atrial premature depolarization; D64.9 Anemia, unspecified; Y95 Nosocomial condition
CPT/HCPCS: 36600; 70450; 71045; 74177; 80048; 80053; 80074; 80202; 81001; 82103; 82105; 82140; 82390; 82728; 82805; 83520; 83540; 83550; 83690; 85007; 85025; 85027; 85610; 85730; 86038; 86255; 86403; 87040; 87070; 87077; 87186; 87205; 87522; 87641; 87902; 93005; 94002; 94003; 94150; 94640; 94664; 96361; 96374; 96375; 99285-25